=== PATIENT | female | born 1980 | race American Indian/Alaskan Native ===

== ENCOUNTER 2017-02-09 07:35 | Outpatient (CLI) | payer OTHER ==
--- NOTE | 2017-02-09 09:56 | Mammography Report ---
Bilateral mammogram: No previous studies available. Findings: Predominance adipose tissue bilaterally. No mass or microcalcification. Focal asymmetry right breast. Benign axillary nodes. Impression: Focal asymmetry right breast. Comparison with previous studies is recommended. If previous studies are not available spot mag and sonographic examination advised. BI-RADS CATEGORY: 0 = Needs additional imaging evaluation ACR BI-RADS MAMMOGRAPHIC CODES: 0 = Needs additional imaging evaluation; 1 = Negative; 2 = Benign; 3 = Probably benign; 4 = Suspicious; 5 = Malignant; 6 = Known biopsy-proven malignancy COMMENT: 1. Dense breast tissue, i.e., adenosis, fibrocystic changes, etc., may obscure an underlying neoplasm. 2. Approximately 10% of cancers are not detected with mammography. 3. A negative mammography report should not delay biopsy if a clinically suspicious mass is present. COMMENT: Patient follow-up letters are generated in [employer].
== END 2017-02-09 07:36 | disposition home or self-care (01) ==
LOC: MAMMO 07:35
PROVIDERS: ATTEND Obstetrics & Gynecology
DX: Z12.31 Encounter for screening mammogram for malignant neoplasm of breast (principal)
CPT/HCPCS: 77067; G0202

== ENCOUNTER 2017-02-22 11:13 | Outpatient (CLI) | payer OTHER ==
--- NOTE | 2017-02-22 13:28 | Ultrasound Report ---
RIGHT DIGITAL DIAGNOSTIC MAMMOGRAM and RIGHT BREAST ULTRASOUND: 02/22/17 CLINICAL: Recalled for asymmetry. COMPARISON:02/09/17screening FINDINGS: Lateralmedial and spot magnification LM, MLOand CC views were performed. Asymmetry with architectural distortion persists on the CC view and there appears to be correlation on lateral medial views. Ultrasound of the right breast (including all four quadrants and the retroareolar area) was performed and demonstrated normal primarily fatty structures. No mass or shadowing to correlate with the mammographic asymmetry. No cyst. IMPRESSION: Probably benign asymmetry and architectural distortion with a negative ultrasound . BI-RADS CATEGORY: 3 -- Probably Benign RECOMMENDATION: 6 month followup right mammogram and right breast ultrasound if needed. ACR BI-RADS MAMMOGRAPHIC CODES: 0 = Needs additional imaging evaluation; 1 = Negative; 2 = Benign; 3 = Probably benign; 4 = Suspicious; 5 = Malignant; 6 = Known biopsy-proven malignancy COMMENT: 1. Dense breast tissue, i.e., adenosis, fibrocystic changes, etc., may obscure an underlying neoplasm. 2. Approximately 10% of cancers are not detected with mammography. 3. A negative mammography report should not delay biopsy if a clinically suspicious mass is present. COMMENT: Patient follow-up letters are generated via our [employer] application.
== END 2017-02-22 11:14 | disposition home or self-care (01) ==
LOC: SPVWC 11:13
PROVIDERS: ATTEND Obstetrics & Gynecology
DX: R92.8 Other abnormal and inconclusive findings on diagnostic imaging of breast (principal)
CPT/HCPCS: 76641; G0206

== ENCOUNTER 2017-08-20 08:10 | Outpatient (CLI) | payer OTHER ==
--- NOTE | 2017-08-20 10:31 | Mammography Report ---
RIGHT DIGITAL DIAGNOSTIC MAMMOGRAM with CAD: 08/20/17 08:10:00 CLINICAL: Follow-up asymmetry and architectural distortion.. COMPARISON:02/09/17 FINDINGS: The previously described architectural distortion and asymmetry in the inner breast is stable. There is no correlation on MLO or lateral views. IMPRESSION: Stable probably benign asymmetry. BI-RADS CATEGORY: 3 - - Probably Benign RECOMMENDATION: Six month followup. She will be due for a bilateral mammogram in six months. ACR BI-RADS MAMMOGRAPHIC CODES: 0 = Needs additional imaging evaluation; 1 = Negative; 2 = Benign; 3 = Probably benign; 4 = Suspicious; 5 = Malignant; 6 = Known biopsy-proven malignancy COMMENT: 1. Dense breast tissue, i.e., adenosis, fibrocystic changes, etc., may obscure an underlying neoplasm. 2. Approximately 10% of cancers are not detected with mammography. 3. A negative mammography report should not delay biopsy if a clinically suspicious mass is present. COMMENT: Patient follow-up letters are generated by our [employer] application.
== END 2017-08-20 08:11 | disposition home or self-care (01) ==
LOC: MAMMO 08:10
PROVIDERS: ATTEND Obstetrics & Gynecology
DX: R92.2 Inconclusive mammogram (principal)
CPT/HCPCS: G0206-RT

== ENCOUNTER 2018-02-10 07:29 | Outpatient (CLI) | payer OTHER ==
--- NOTE | 2018-02-10 14:33 | Mammography Report ---
BILATERAL DIGITAL SCREENING MAMMOGRAM with CAD: 02/10/18 07:29:00 CLINICAL: Routine screening. COMPARISON:02/09/17 and 02/22/17 and 08/20/17 right mammograms. FINDINGS: The breasts are almost entirely fatty.The previously described right asymmetry with mild architectural distortion on the CC view is unchanged compared to previous exams. No mass, suspicious architectural distortion or suspicious calcifications. IMPRESSION: No mammographic evidence of malignancy. Benign right asymmetry and architectural distortion. BI-RADS CATEGORY: 2 -- Benign RECOMMENDATION: Routine mammographic screening in one year. COMMENT: Patient follow-up letters are generated by our [employer] application.
== END 2018-02-10 07:30 | disposition home or self-care (01) ==
LOC: MAMMO 07:29
PROVIDERS: ATTEND Obstetrics & Gynecology
DX: Z12.31 Encounter for screening mammogram for malignant neoplasm of breast (principal)
CPT/HCPCS: 77067

== ENCOUNTER 2019-02-20 10:11 | Outpatient (CLI) | payer OTHER ==
--- NOTE | 2019-02-20 11:12 | Mammography Report ---
BILATERAL DIGITAL SCREENING MAMMOGRAM with CAD: 02/20/19 10:11:00 CLINICAL: Routine screening. COMPARISON:02/10/18 FINDINGS: The breasts are almost entirely fatty. No mass, architectural distortion or suspicious calcifications. IMPRESSION: No mammographic evidence of malignancy. BI-RADS CATEGORY: 1 - - Negative RECOMMENDATION: Routine mammographic screening in one year. COMMENT: Patient follow-up letters are generated by our [employer] application.
== END 2019-02-20 10:12 | disposition home or self-care (01) ==
LOC: MAMMO 10:11
PROVIDERS: ATTEND Obstetrics & Gynecology
DX: Z12.31 Encounter for screening mammogram for malignant neoplasm of breast (principal)
CPT/HCPCS: 77067

== ENCOUNTER 2020-04-03 09:10 | Outpatient (CLI) | payer OTHER ==
--- NOTE | 2020-04-03 13:55 | Mammography Report ---
DIGITAL SCREENING MAMMOGRAM WITH CAD, 04/03/2020 INDICATION: Routine screening mammography. TECHNIQUE: Digital bilateral 2D mammography was obtained in the craniocaudal and mediolateral obliq ue projections. This examination was interpreted with the benefit of Computer-Aided Detection analysi s. COMPARISON: 02/20/2019, 02/10/2018 FINDINGS: Breast Density: There are scattered areas of fibroglandular density. There is no evidence of dominant mass, suspicious calcifications or architectural distortion in eithe r breast. IMPRESSION: Follow up recommendation: Routine yearly BI-RADS Category 1: Negative. A "normal" or negative report should not discourage follow up or biopsy of a clinically significant f inding. A written summary of these findings will be mailed to the patient. The patient will be entered into a mammography reporting system which will generate a reminder letter for the patient's next appointmen t at the appropriate interval. The [employer] recommends yearly mammograms starting at age 40 and continuing as l francisca as a woman is in good health. Breast MRI is recommended for women with an approximate 20-25% or greater lifetime risk of breast cancer, including women with a strong family history of breast or ova donna cancer or who have been treated for Hodgkin's disease. Signer Name: Curt Haynes MD Signed: 04/03/2020 1:50 PM Workstation Name: [id number]
== END 2020-04-03 09:11 | disposition home or self-care (01) ==
LOC: MAMMO 09:10
PROVIDERS: ATTEND Obstetrics & Gynecology
DX: Z12.31 Encounter for screening mammogram for malignant neoplasm of breast (principal); N64.89 Other specified disorders of breast
CPT/HCPCS: 77067